=== PATIENT | female | born 1955 | race Caucasian/White ===

== ENCOUNTER 2018-03-20 13:41 | Outpatient (CLI) | payer BC | END 2018-03-20 20:37 | disposition home or self-care (01) | LOC: SMA 13:41 | PROVIDERS: ATTEND General Practice | DX: Z12.31 Encounter for screening mammogram for malignant neoplasm of breast (principal); R92.1 Mammographic calcification found on diagnostic imaging of breast | CPT/HCPCS: 77067 ==

== ENCOUNTER 2020-07-07 08:20 | Outpatient (CLI) | payer BC | END 2020-07-07 19:27 | disposition home or self-care (01) | LOC: SMA 08:20 | DX: Z12.31 Encounter for screening mammogram for malignant neoplasm of breast (principal); M54.2 Cervicalgia; M47.812 Spondylosis without myelopathy or radiculopathy, cervical region | CPT/HCPCS: 72050-TC; 77067 ==

== ENCOUNTER 2021-08-20 11:57 | Outpatient (CLI) | payer BC | END 2021-08-20 20:41 | disposition home or self-care (01) | LOC: SMA 11:57 | DX: Z12.31 Encounter for screening mammogram for malignant neoplasm of breast (principal); R59.0 Localized enlarged lymph nodes | CPT/HCPCS: 77067 ==